=== PATIENT | female | born 1960 | race Caucasian/White ===

== ENCOUNTER → 2017-09-06 | Outpatient (CLI) | payer BC ==
[~2017-09-06] MED LIST: CENTRUM TABLET1 TAB OR; ESTRACE0.5 MG OR; IBUPROFEN 200200 M1 OR; LORTAB 5 MG/5001 TA1 PO
== END ==
LOC: ULTRA 12:17
DX: M25.462 Effusion, left knee (principal); M79.89 Other specified soft tissue disorders